=== PATIENT | male | born 1945 | race Caucasian/White ===

== ENCOUNTER 2020-02-10 10:41 | Emergency (ER) | payer OTHER ==
[~2020-02-10] VITALS: Ht 188 cm; Wt 113.4 kg
[2020-02-10 10:41] VITALS: BP_SYST 159
--- NOTE | 2020-02-10 10:41 | NUR ---
BROUGHT BACK TO BED #7 AND TRIAGED. REPORT GIVEN TO LUBNA
--- NOTE | 2020-02-10 10:45 | NUR ---
DR. WILSON AT BEDSIDE
--- NOTE | 2020-02-10 10:50 | NUR ---
PT PRESENTS TO ER WITH C/O FALL YESTERDAY ON THE SIDEWALK RESULTING IN L HAND LAC. WENT TO URGENT CARE YESTERDAY AND THEY TOLD HIM TO GO TO ER. V/S STABLE, AAOX4
--- NOTE | 2020-02-10 11:17 | NUR ---
XRAYS BEING DONE AT BEDSIDE. PT TOLERATING THEM WELL.
[2020-02-10 11:19] LABS: BASOPHILS # (AUTO) 0.1 K/uL (0.0-0.2); BASOPHILS % (AUTO) 0.8 % (0.0-2.0); EOSINOPHILS # (AUTO) 0.2 K/uL (0.0-0.4); EOSINOPHILS % (AUTO) 2.5 % (0.0-4.0); HEMATOCRIT 46.3 % (36-54); HEMOGLOBIN 15.1 g/dL (14.0-18.0); LYMPHOCYTES # (AUTO) 2.1 K/uL (1.0-5.5); MEAN CORPUSCULAR HEMOGLOBIN 33 pg (27-31); MEAN CORPUSCULAR HGB CONC 33 % (32-36); MEAN CORPUSCULAR VOLUME 101 fL (79.0-98.0); MONOCYTES # (AUTO) 0.9 K/uL (0.0-1.0); MONOCYTES % (AUTO) 11.4 % (1.7-9.3); NEUTROPHILS % (AUTO) 60.3 % (40.0-70.0); PLATELET COUNT (AUTO) 206 K/uL (130-430); RED BLOOD CELL COUNT(AUTO) 4.59 MIL/uL (4.2-6.2); RED CELL DISTRIBUTION WIDTH 14.6 % (9.0-15.0); WHITE BLOOD COUNT (AUTO) 8.3 K/uL (4.8-10.8)
[2020-02-10 11:42] LABS: ANION GAP 6 (5-15); CALCIUM 9.6 mg/dL (8.4-11.0); CHLORIDE 105 mmol/L (98-107); CREATININE 0.91 mg/dL (0.55-1.30); GLUCOSE 115 mg/dL (70-99); POTASSIUM 4.2 mmol/L (3.5-5.1); SODIUM SERUM 138 mmol/L (136-145); UREA NITROGEN, BLOOD 19 mg/dL (8-21)
[2020-02-10 11:47] LABS: ALANINE AMINOTRANSFERASE 37 U/L (12-78); ALBUMIN 3.9 g/dL (3.4-4.8); ASPARTATE AMINOTRANSFERASE 26 U/L (10-37); TOTAL BILIRUBIN 1.6 mg/dL (0.0-1.0)
[2020-02-10 11:49] LABS: PROTHROMBIN TIME 9.9 SECS (9.5-12.5)
[2020-02-10] MEDS ORDERED: DIPH-TET-PERTUS Vaccine 0.5 ML VIAL (ADACEL) I.M. ONE (12:15)
--- NOTE | 2020-02-10 12:24 | NUR ---
Patient given written and verbal discharge instructions and verbalizes understanding. ER MD discussed with patient the results and treatment provided. Patient in stable condition. Rx of BACITRACIN, NORCO, CLINDAMYCIN given. Patient educated on pain management and to follow up with PMD. Pain Scale 2/10 TO LEFT HAND LAC. Opportunity for questions provided and answered. Medication side effect fact sheet provided.
[2020-02-10 12:25] VITALS: BP_SYST 159
[2020-02-10] MEDS ORDERED: BACITRACIN 1 GM OINT TP ONE (12:26)
== END 2020-02-10 12:24 | disposition home or self-care (01) ==
LOC: SED 10:41
DX: S61.412A Laceration without foreign body of left hand, initial encounter (principal); W18.39XA Other fall on same level, initial encounter; Y93.89 Activity, other specified; Y92.89 Other specified places as the place of occurrence of the external cause; Y99.8 Other external cause status
CPT/HCPCS: 36415; 80053; 83605; 85025; 85610-TC; 85730-TC; 86140; 90715; 99284

== ENCOUNTER 2020-02-12 11:33 | Emergency (ER) | payer OTHER ==
[~2020-02-12] VITALS: Ht 182.9 cm; Wt 102.1 kg
[2020-02-12 11:47] VITALS: BP_SYST 137
--- NOTE | 2020-02-12 11:47 | NUR ---
Patient to ER bed 5 to gown for evaluation. Side rails up. Report given to Amos.
--- NOTE | 2020-02-12 11:55 | NUR ---
pt arrives from home for a left palm lac recheck. Minimal drainage noted on the dressing.
--- NOTE | 2020-02-12 11:58 | NUR ---
ER at bedside examining patient.
--- NOTE | 2020-02-12 12:08 | NUR ---
left hand lac cleansed with NS, dressing applied. Pt tolerated well.
[2020-02-12 12:15] VITALS: BP_SYST 137
--- NOTE | 2020-02-12 12:16 | NUR ---
Patient given written and verbal discharge instructions and verbalizes understanding. ER MD discussed with patient the results and treatment provided. Patient in stable condition. ID arm band removed. Patient educated on pain management and to follow up with PMD. Pain Scale 3/10. Opportunity for questions provided and answered. Medication side effect fact sheet provided.
== END 2020-02-12 12:15 | disposition home or self-care (01) ==
LOC: SED 11:33
DX: Z48.00 Encounter for change or removal of nonsurgical wound dressing (principal)
CPT/HCPCS: 99283